=== PATIENT | male | born 1975 | race Caucasian/White ===

== ENCOUNTER 2022-07-23 00:17 | Emergency (ER) | payer OTHER ==
[2022-07-23] MEDS ORDERED: Lidocaine 1% (PF) 30 ML VIAL ONE (01:05)
[2022-07-23] MEDS ORDERED: Bacitracin 1 PK ONE (01:18)
== END 2022-07-23 02:10 ==
LOC: NAV ERS 00:17
DX: S01.112A Laceration without foreign body of left eyelid and periocular area, initial encounter (principal); S01.01XA Laceration without foreign body of scalp, initial encounter; K21.9 Gastro-esophageal reflux disease without esophagitis; Z79.899 Other long term (current) drug therapy; Y04.0XXA Assault by unarmed brawl or fight, initial encounter
CPT/HCPCS: 12001; 12011; 70450; J2001